=== PATIENT | male | born 1970 | race African-American/Black ===

== ENCOUNTER 2020-03-08 12:00 | Outpatient (REF) | payer OTHER, SELFPAY | END 2020-03-08 12:01 | disposition home or self-care (01) | LOC: HO.LAB 12:00 | PROVIDERS: Visit Provider Internal Medicine | DX: Z20.828 Contact with and (suspected) exposure to other viral communicable diseases (principal) | CPT/HCPCS: C9803; U0003 ==

== ENCOUNTER 2021-11-08 08:37 | Emergency (ER) | payer OTHER, SELFPAY ==
[2021-11-08 08:44] VITALS: BP 138/94; PULSE 88; RESP 18; TEMP 36.6; O2SAT 100; BMI 25.0
== END 2021-11-08 11:07 | disposition left against medical advice (07) ==
PROVIDERS: Emergency Provider Emergency Medicine; PCP Internal Medicine
DX: R19.7 Diarrhea, unspecified (principal)
CPT/HCPCS: 99281